=== PATIENT | female | born 1975 | race Two or more races ===

== ENCOUNTER 2024-01-17 10:02 | Emergency (ER) | payer OTHER ==
[2024-01-17 10:10] VITALS: BMI 34.7
[2024-01-17 10:45] LABS: BASO % 0.5 % (0-2.0); EOS % 0.5 % (0-4.5); HEMATOCRIT 35.1 % (32.4-45.2); HEMOGLOBIN 11.5 GM/dL (10.7-15.3); LYMPH % 23.3 % (8-40); MCH 27.4 pg (25.7-33.7); MCHC 32.9 g/dl (32.0-36.0); MEAN CELL VOLUME 83.1 fl (80-96); MEAN PLT VOLUME 7.8 fl (7.5-11.1); MONO % 7.8 % (3.8-10.2); NEUT % 67.9 % (42.8-82.8); PLATELET COUNT 305 10^3/uL (134-434); RBC 4.22 M/mm3 (3.60-5.2); RDW 13.8 % (11.6-15.6); WHITE BLOOD COUNT 7.1 K/mm3 (4.0-10.0)
[2024-01-17 10:51] LABS: INR 1.03 (0.83-1.09); PROTHROMBIN TIME (PATIENT) 11.9 SEC (9.7-13.0)
[2024-01-17 10:54] LABS: ACTIVATED PTT 27.8 SECONDS (25.2-36.5)
[2024-01-17] MEDS ORDERED: ACETAMINOPHEN INJECTION 100 ML IVPB ONE (10:58)
[2024-01-17] MEDS: ACETAMINOPHEN 1000 MG/100 ML BAG IVPB ONE (11:03)
[2024-01-17 11:05] LABS: POTASSIUM 4.5 mmol/L (3.5-5.1)
[2024-01-17 11:06] LABS: CALCIUM 9.6 mg/dL (8.5-10.1)
[2024-01-17 11:08] LABS: ALBUMIN 3.3 g/dl (3.4-5.0); BLOOD UREA NITROGEN 13.5 mg/dL (7-18)
[2024-01-17 11:11] LABS: CREATININE 0.9 mg/dL (0.55-1.3)
[2024-01-17 11:12] LABS: BILIRUBIN,TOTAL 0.6 mg/dL (0.2-1)
[2024-01-17 11:46] VITALS: BP 121/82; PULSE 65; RESP 15; TEMP 97.9
== END 2024-01-17 11:46 | disposition home or self-care (01) ==
LOC: JER 10:02
PROC: 3E033NZ Introduction of Analgesics, Hypnotics, Sedatives into Peripheral Vein, Percutaneous Approach (ICD-10-PCS; principal; 2024-01-17)
DX: R06.02 Shortness of breath (principal); R07.2 Precordial pain
CPT/HCPCS: 0241U-QW; 36415; 71045-TC-FY; 80053; 84484; 84703; 85025; 85610; 85730; 93005; 93010; 99285-25; J0131